=== PATIENT | female | born 1955 | race Hispanic/Latino ===

== ENCOUNTER → 2016-10-16 | Outpatient (CLI) | payer MEDICARE, OTHER ==
[~2016-10-16] MED LIST: CRES20TA PO; DULO30CA PO; ECOT81TA5 PO; INSUNSD SC; INSURSD SC; IRBE300T12 PO; KEPP1TAB2 PO; METF1000 PO; PLAV75TA38 PO; SIMB1SUS OU
== END ==
LOC: M RAD 14:25
PROVIDERS: ATTEND Family Medicine
DX: Z12.39 Encounter for other screening for malignant neoplasm of breast (principal); Z53.9 Procedure and treatment not carried out, unspecified reason

== ENCOUNTER → 2016-11-19 | Outpatient (CLI) | payer MEDICARE, OTHER ==
--- NOTE | 2016-11-19 17:20 | REP ---
CERVICAL SPINE, EIGHT VIEWS: HISTORY: Spondylosis. COMPARISON: 01/25/2015 The cervical spine is visualized from C1 to C5 in the lateral radiographs. There is no acute fracture. The C4-5 and C5-6 intervertebral discs are decreased in height consistent with disc degeneration. Osteophytes are present on C2 through C4. There is narrowing of the C5 neural foramina secondary to uncinate process hypertrophy. There are 2 mm of anterior subluxation of C2 on C3 and C4 on C5 with flexion and 3 mm of anterior subluxation of C3 on C4 with flexion. This is not seen in neutral or extension radiographs. IMPRESSION: Degenerative change as described above. Signed by Galindo Leroy MD 11/20/2016 08:28 A
--- NOTE | 2016-11-19 17:23 | REP ---
LUMBAR SPINE, SEVEN VIEWS: HISTORY: Sacroiliitis. There is no acute fracture. The intervertebral discs are decreased in height consistent with disc degeneration. Osteophytes are present on L3 through L5. There is narrowing of the L3-4 through L5-S1 facet joints. There are 3 mm of grade 1 spondylolisthesis of L4 on L5. This is unchanged with flexion and extension. IMPRESSION: Degenerative change as described above. Signed by Galindo Leroy MD 11/20/2016 08:28 A
== END ==
LOC: M LRY 15:34
PROVIDERS: ATTEND Neurological Surgery
DX: M25.78 Osteophyte, vertebrae (principal); M51.36 Other intervertebral disc degeneration, lumbar region; M51.37 Other intervertebral disc degeneration, lumbosacral region; M50.321 Other cervical disc degeneration at C4-C5 level; M50.322 Other cervical disc degeneration at C5-C6 level
CPT/HCPCS: 72052; 72114; G0463

== ENCOUNTER → 2016-11-20 | Outpatient (REF) | payer MEDICARE ==
[2016-11-20 11:45] LABS: MEAN CORPUSCULAR HEMOGLOBIN 29.2 pg (27.0-33.0); MEAN CORPUSCULAR VOLUME 88.4 fl (80.0-96.0); WHITE BLOOD COUNT 8.1 K/mm3 (4.0-10.0)
[2016-11-20 12:06] LABS: ALBUMIN 3.5 GM/DL (3.2-5.2); ALBUMIN/GLOBULIN RATIO 0.95 (1.00-1.93); ALKALINE PHOSPHATASE 95 U/L (45-117); ALT/SGPT 30 U/L (12-78); ANION GAP 7 MEQ/L (8-16); AST/SGOT 15 U/L (15-37); BILIRUBIN,TOTAL 0.5 MG/DL (0.2-1.0); BLOOD UREA NITROGEN 23 MG/DL (7-18); CALCIUM LEVEL 9.6 MG/DL (8.8-10.2); CARBON DIOXIDE LEVEL 31 MEQ/L (21-32); CHLORIDE LEVEL 107 MEQ/L (98-107); CHOLESTEROL LEVEL 177 MG/DL (<200); CREATININE FOR GFR 0.58 MG/DL (0.55-1.02); GLOMERULAR FILTRATION RATE > 60.0 (>45); GLUCOSE, FASTING 103 MG/DL (80-110); POTASSIUM SERUM 4.4 MEQ/L (3.5-5.1); SODIUM LEVEL 145 MEQ/L (136-145); TOTAL PROTEIN 7.2 GM/DL (6.4-8.2); TRIGLYCERIDES LEVEL 94 MG/DL (<150)
== END ==
LOC: M SFHCLERA 07:46
PROVIDERS: ATTEND Family Medicine
DX: E11.9 Type 2 diabetes mellitus without complications (principal)

== ENCOUNTER → 2016-11-25 | Outpatient (CLI) | payer MEDICARE, OTHER ==
--- NOTE | 2016-11-25 11:16 | REPMRS ---
Patient History The patient states she had a clinical breast exam in 2016. Patient is postmenopausal. Family history of breast cancer in mother at age 57 and breast cancer in maternal aunt at age 60. Took hormonal contraceptives for 20 years. Best films possible , patient not very tolerant of compression Digital Mammo Screening Bilat: November 25, 2016 - Exam #: [id number] Bilateral CC and MLO view(s) were taken. Technologist: Jaylene Espinoza, Technologist Prior study comparison: June 21, 2015, digital bilateral screening mammo, performed at [facility]. FINDINGS: There are scattered fibroglandular densities. There has been no change in the appearance of the mammogram from the prior studies. There is a mild amount of scattered fibroglandular density which is fairly symmetric. There is no interval development of dominant mass, architectural distortion, or clustered microcalcification suggestive of malignancy. ASSESSMENT: BI-RADS/ACR category 1 mammogram. Negative. Recommendation Routine screening mammogram in 1 year (for women over age 40). This mammogram was interpreted with the aid of an FDA-approved computer-aided dectection system. Electronically Signed By: Lior Rodas MD 11/25/16 [id number]
== END ==
LOC: M RAD 08:31
PROVIDERS: ATTEND Family Medicine
DX: Z12.31 Encounter for screening mammogram for malignant neoplasm of breast (principal); Z80.3 Family history of malignant neoplasm of breast

== ENCOUNTER → 2016-12-20 | Outpatient (REF) | payer MEDICARE | LOC: M LAB REF 16:06 | PROVIDERS: ATTEND Neurological Surgery | DX: Z01.818 Encounter for other preprocedural examination (principal); G56.02 Carpal tunnel syndrome, left upper limb ==

== ENCOUNTER → 2017-02-04 | Outpatient (REF) | payer MEDICARE ==
[~2017-02-04] MED LIST changes: +ALPH0.156 OU; +CLEO300C2 PO; +CYCL5TA PO; +CYMB60CA3 PO; +IBUP600T26 PO; +INSURSDRX SC; +METF500T PO; +METO25TA74 PO; +NOVOINJ5 SC; +SIMV20TA2 PO; +TRAZO50TA PO; +TRUS1SOL OU
[2017-02-04 18:02] LABS: INR 1.03
[2017-02-04 18:19] LABS: MEAN CORPUSCULAR HEMOGLOBIN 29.6 pg (27.0-33.0); MEAN CORPUSCULAR HGB CONC 32.5 g/dl (32.0-36.5); MEAN CORPUSCULAR VOLUME 90.9 fl (80.0-96.0); RED CELL DISTRIBUTION WIDTH 12.5 % (11.5-14.5); WHITE BLOOD COUNT 8.5 K/mm3 (4.0-10.0)
[2017-02-04 20:29] LABS: ALBUMIN 3.9 GM/DL (3.2-5.2); ALBUMIN/GLOBULIN RATIO 1.03 (1.00-1.93); ALKALINE PHOSPHATASE 99 U/L (45-117); ALT/SGPT 48 U/L (12-78); ANION GAP 8 MEQ/L (8-16); AST/SGOT 18 U/L (15-37); BILIRUBIN,TOTAL 0.5 MG/DL (0.2-1.0); BLOOD UREA NITROGEN 20 MG/DL (7-18); CALCIUM LEVEL 8.6 MG/DL (8.8-10.2); CARBON DIOXIDE LEVEL 29 MEQ/L (21-32); CHLORIDE LEVEL 103 MEQ/L (98-107); CREATININE FOR GFR 0.77 MG/DL (0.55-1.02); GLOMERULAR FILTRATION RATE > 60.0 (>45); GLUCOSE, FASTING 169 MG/DL (80-110); POTASSIUM SERUM 4.8 MEQ/L (3.5-5.1); SODIUM LEVEL 140 MEQ/L (136-145); TOTAL PROTEIN 7.7 GM/DL (6.4-8.2)
== END ==
LOC: M SFHCLERA 11:35
PROVIDERS: ATTEND Family Medicine
DX: Z01.818 Encounter for other preprocedural examination (principal); G56.02 Carpal tunnel syndrome, left upper limb; E11.9 Type 2 diabetes mellitus without complications; Z79.84 Long term (current) use of oral hypoglycemic drugs; Z79.82 Long term (current) use of aspirin; Z79.4 Long term (current) use of insulin; Z79.899 Other long term (current) drug therapy
CPT/HCPCS: 80053; 85027; 85610; 85730; 93005; G0463

== ENCOUNTER → 2017-02-11 | Outpatient (CLI) | payer MEDICARE ==
[~2017-02-11] MED LIST changes: -CLEO300C2 PO; -IBUP600T26 PO
--- NOTE | 2017-02-11 15:40 | REP ---
Clinical: Preoperative assessment . Comparison: 04/16/2016 . Technique: PA and lateral. Findings: The mediastinum and cardiac silhouette are normal. The lung mccall are clear and without acute consolidation, effusion, or pneumothorax. The skeletal structures are intact and normal. Impression: 1. No acute cardiopulmonary process. Signed by Silverio Stoll MD 02/11/2017 03:31 P
== END ==
LOC: M LAB 14:56
PROVIDERS: ATTEND Neurological Surgery
DX: Z01.818 Encounter for other preprocedural examination (principal); G56.02 Carpal tunnel syndrome, left upper limb

== ENCOUNTER 2017-02-13 07:27 | Day surgery (SDC) | payer MEDICARE ==
[~2017-02-13] VITALS: Ht 147.3 cm; Wt 74.8 kg
[~2017-02-13 07:27] MED LIST changes: -SIMV20TA2 PO
[2017-02-13] MEDS ORDERED: LR 1,000 ML IV ONE (07:45)
[2017-02-13] MEDS ORDERED: SIMV20TA2 PO (08:26)
[2017-02-13] MEDS ORDERED: LIDOCAINE 2% INJ 100 MG/5 ML SDV (FOR ANES.) As Ordered ONE (08:50)
[2017-02-13] MEDS ORDERED: PROPOFOL 200 MG/20 ML VIAL As Ordered ONE (08:50)
[2017-02-13] MEDS ORDERED: MIDAZOLAM INJ 2 MG/2 ML VIAL (J2250) As Ordered ONE (08:51)
[2017-02-13] MEDS ORDERED: fentaNYL 100 MCG/2 ML INJECTION (J3010) As Ordered ONE (08:51)
[2017-02-13] MEDS ORDERED: methylPREDNISolone SUSP 40 MG/ML (DEPO-medrol) VIAL (J1030) As Ordered ONE (09:18)
[2017-02-13] MEDS ORDERED: PHENYLephrine HCL 500 MCG/5 ML (100MCG/ML) SYRINGE (J2370) As Ordered ONE (10:12)
[2017-02-13] MEDS ORDERED: SUCCINYLCHOLINE 100 MG/5 ML SYRINGE (J0330) As Ordered ONE (10:26)
[2017-02-13] MEDS ORDERED: ONDANSETRON 4MG/2ML VIAL (J2405) As Ordered ONE (10:27)
[2017-02-13] MEDS ORDERED: METOCLOPRAMIDE INJ 10MG/2ML VIAL (J2765) As Ordered ONE (10:27)
[2017-02-13] MEDS ORDERED: fentaNYL 100 MCG/2 ML INJECTION (J3010) IV PRN (11:30)
[2017-02-13] MEDS ORDERED: PERCOCET 5MG/325MG TAB PO PRN (11:30)
[2017-02-13] MEDS ORDERED: ONDANSETRON 4MG/2ML VIAL (J2405) IV PRN (11:30)
[2017-02-13] MEDS ORDERED: D5W/0.45% SODIUM CHLORIDE 1,000 ML IV SCH (11:30)
[2017-02-13] MEDS ORDERED: PERCOCET 5MG/325MG TAB As Ordered ONE (13:53)
[2017-02-13 15:55] VITALS: BP 146/68
[2017-02-13 16:25] VITALS: BP 166/72
--- NOTE | 2017-02-13 16:50 | IPNPDOC ---
Subjective Date Seen The patient was seen on 02/13/17. Subjective Chief Complaint/HPI The patient is a 62-year-old female admitted with a reason for visit of Left Carpal Tunnel Syndrome. Events since last encounter Patient underwent carpal tunnel release under general anesthesia. Post surgery was noted to be hypoxic to 85% as soon as she falls asleep in the PACU so anesthesia reccomended admission and observation overnight and hospitalist service was consulted for hypoxia and possible ABDON. Patient denies any SOB , denied any chest pain or cough , denied any abdominal pain nausea or vomiting or diarrhea. Objective Physical Examination General Exam: Positive: Alert, Cooperative, No Acute Distress, Other (obese, short neck ) Eye Exam: Positive: PERRLA, Conjunctiva & lids normal, EOMI, Negative: Sclera icteric ENT Exam: Positive: Atraumatic, Mucous membr. moist/pink, Pharynx Normal Neck Exam: Positive: Supple, Negative: JVD, thyromegaly Chest Exam: Positive: Clear to auscultation, Normal air movement Heart Exam: Positive: Rate Normal, Regular Rhythm, Normal S1, Normal S2, Negative: Murmurs, Rubs Abdomen Exam: Positive: Normal bowel sounds, Soft, Negative: Tenderness, Hepatospenomegaly Extremity Exam: Positive: Normal pulses, Negative: Clubbing, Cyanosis, Edema Skin Exam: Positive: Nl turgor and temperature, Negative: Rash, Breakdown Assessment /Plan Problems (1) Hypoxia Status: Acute Problem Text: Patient will be followed by Dr Weston from 02/13/17 post surgery and anesthesia. patient obese , short stature with short neck body habitus highly suggestive of underlying ABDON never diagnosed before will get continuous nocturnal pulse oximetry and follow ABDON protocol will continue oxygen supplementation. will try to keep pain medication minimal. May need to be referred fo sleep study as outpatient. (2) Diabetes Status: Chronic Problem Text: with neuropathy continue home medications. (3) HTN (hypertension) Status: Chronic Problem Text: continue home medications. (4) History of TIA (transient ischemic attack) Status: Resolved Problem Text: continue asa and plavix. (5) Seizure Status: Chronic Problem Text: continue keppra (6) Hyperlipidemia Status: Chronic Problem Text: continue statin. (7) Peptic ulcer disease Status: Chronic (8) Glaucoma Status: Chronic Plan/VTE VTE Prophylaxis Ordered?: Yes VS, I&O, 24H, Fishbone Vital Signs/I&O Vital Signs Date Time Temp Pulse Resp B/P (MAP) Pulse Ox O2 Delivery O2 Flow Rate FiO2 02/13/17 15:25 88 16 136/62 (86) 93 Room Air 02/13/17 12:50 98.0 02/13/17 11:45 2 Laboratory Data 24H LABS Laboratory Tests 2 02/13/17 08:16: Bedside Glucose (Misc Panel) 112 02/13/17 11:01: Bedside Glucose (Misc Panel) 72L 02/13/17 11:54: Bedside Glucose (Misc Panel) 138H 02/13/17 14:08: Bedside Glucose (Misc Panel) 193H LUCÍA INGRAM MD February 13, 2017 16:47
[2017-02-13] MEDS ORDERED: GLUCOSE 4 GM CHEW TABLET PO PRN (17:00)
[2017-02-13] MEDS ORDERED: DEXTROSE 50% 50 ML SYRINGE IV PRN (17:00)
[2017-02-13] MEDS ORDERED: GLUCAGON FOR INJ 1 MG VIAL (J1610) SC PRN (17:00)
[2017-02-13 17:25] VITALS: BP 126/59
--- NOTE | 2017-02-13 18:02 | RO ---
DATE OF PROCEDURE: 02/13/2017 PREOPERATIVE DIAGNOSIS: Left carpel tunnel syndrome. POSTOPERATIVE DIAGNOSIS: Left carpel tunnel syndrome. PROCEDURES: 1. Release of left carpal tunnel. 2. External neurolysis of medial nerve of the left carpel tunnel. SURGEON: Lenin Griggs MD DRIP MOLDER: ANESTHESIA: General. FINDINGS: Please see my office notes for detailed preoperative evaluation and discussion. This patient had clinical and electrodiagnostic evidence of left carpal tunnel syndrome. The patient was seen in the preoperative area with her daughter. The patient and her daughter were aware of all options, scope, expected outcome, sequelae, and risk of the proposed salvage surgery on the left carpel tunnel. She and her daughter understand that not all her symptoms could be readily explained on her carpel tunnel syndrome. Her electrodiagnostic findings show complicated findings with radiculopathy as well as multiple peripheral nerve entrapments. The patient once again stated she is willing to run any or all risk for any possible benefit and she understands the risk of surgery includes infection, bleeding, reflex sympathetic dystrophy (RSD), persistence or worsening or symptoms and/or any deficits, failure of surgery, need for multiple surgeries and/or catastrophic sequela. At her request she was taken to the operating room after all matters pertaining to surgery, anesthesia and followup care had been discussed again. Discussions were held in the presence of her daughter as well as anesthesiologist. DESCRIPTION OF PROCEDURE: Once in the operating room, general anesthesia was given by the anesthesia service after the patient decided to have general anesthesia rather than the Anthony block. The area of surgery was prepped and draped in the usual sterile fashion. The left upper extremity was exsanguinated using Esmarch dressing and a tourniquet applied 20 mmHg. A skin incision was given along one of the palmar creases distal to the wrist crease. Alveolar layer was reached and incised. Cut edges of the blood vessels were coagulated with the bipolar cautery. Tendons of palmaris longus were . Thenar and hypothenar muscles were stripped off the flexor, the retinaculum was then incised in its entirety. There was nodular hypertrophy of the flexor retinaculum, which was compressing the median nerve. There were several significant perineural adhesions, which were lysed. At this time complete decompression was taken place and the nerve was irrigated with 40 mg Depo-Medrol and wound closed in two layers. The patient tolerated the procedure. I could not locate her daughter or other family members for further discussion. The patient and her daughter had written and verbal followup instructions.
[2017-02-13 18:30] VITALS: BP 154/73
[2017-02-13] MEDS: HumaLOG INSULIN (NovoLOG) PER UNIT SC SCH (19:09)
[2017-02-13 20:00] VITALS: BP 137/63
[2017-02-13] MEDS: DORZOLAMIDE 2% OPHTH SOLN 10 ML BTL OU SCH (20:06)
[2017-02-13] MEDS: levETIRAcetam 250MG TABLET (KEPPRA) PO SCH (20:06)
[2017-02-13] MEDS: BRIMONIDINE 0.15% OPHTH SOLN 5 ML OU SCH (20:06)
[2017-02-13] MEDS ORDERED: NORCO, ANEXSIA 5/325MG TABLET (HYDROcodone/ACETAMINOPHEN) PO PRN ×2 (20:30)
[2017-02-13] MEDS ORDERED: HumaLOG INSULIN (NovoLOG) PER UNIT SC SCH (21:00)
[2017-02-13] MEDS ORDERED: HumuLIN N INSULIN (NovoLIN N) PER UNIT SC ONE (22:45)
[2017-02-14] VITALS: BP 168/76
[2017-02-14 04:00] VITALS: BP 136/70
[2017-02-14] MEDS ORDERED: HumuLIN N INSULIN (NovoLIN N) PER UNIT SC SCH (07:00)
[2017-02-14 07:21] LABS: ANION GAP 6 MEQ/L (8-16); BLOOD UREA NITROGEN 13 MG/DL (7-18); CALCIUM LEVEL 8.7 MG/DL (8.8-10.2); CARBON DIOXIDE LEVEL 33 MEQ/L (21-32); CHLORIDE LEVEL 102 MEQ/L (98-107); CREATININE FOR GFR 0.57 MG/DL (0.55-1.02); GLOMERULAR FILTRATION RATE > 60.0 (>45); GLUCOSE, FASTING 181 MG/DL (80-110); SODIUM LEVEL 141 MEQ/L (136-145)
[2017-02-14] MEDS: HumaLOG INSULIN (NovoLOG) PER UNIT SC SCH ×2 (07:26→12:38)
[2017-02-14 08:00] VITALS: BP 138/66
[2017-02-14] MEDS ORDERED: metFORMIN (GLUCOPHAGE) 500 MG TAB PO SCH (08:00)
[2017-02-14] MEDS: levETIRAcetam 250MG TABLET (KEPPRA) PO SCH (08:53)
[2017-02-14 08:54] VITALS: BP 138/66
[2017-02-14] MEDS: BRIMONIDINE 0.15% OPHTH SOLN 5 ML OU SCH (08:55)
[2017-02-14] MEDS: DORZOLAMIDE 2% OPHTH SOLN 10 ML BTL OU SCH (08:55)
[2017-02-14] MEDS ORDERED: ASPIRIN 81 MG ENTERIC TAB PO SCH (09:00)
[2017-02-14] MEDS ORDERED: SIMVASTATIN 20 MG TAB PO SCH ×2 (09:00→21:00)
[2017-02-14] MEDS ORDERED: IRBESARTAN 150 MG TAB PO SCH (09:00)
[2017-02-14] MEDS ORDERED: DULoxetine 30 MG CAP (CYMBALTA) PO SCH (09:00)
[2017-02-14] MEDS ORDERED: METOPROLOL SUCC *XL* 25MG TAB (TopROL *XL*) PO SCH (09:00)
[2017-02-14] MEDS ORDERED: CLOPIDOGREL 75 MG TAB PO SCH (09:00)
[2017-02-14 12:00] VITALS: BP 128/77
--- NOTE | 2017-02-14 16:17 | IPNPDOC ---
Text Note Date of Service The patient was seen on 02/14/17. NOTE Subjective: Denies any complaints. Feels well. Wants to go home. Objective: Vitals: (see below) General: No acute distress, Sitting comfortably in chair. HEENT: Moist mucous membranes. Neck: No JVD Cardiac: RRR, No murmurs Pulm: Clear to auscultation b/l. No wheezing, rhonchi Abd: NT/ND + BS. Obese Ext: No edema or cyanosis. Labs (see below) Assessment/Plan 1. POD #1 s/p Carpel tunnel release. Management per Dr. Griggs 2. Hypoxia post surg - likely related to ABDON. Nocturnal pulse ox with desaturation to 70s, and variable decelerations. Discussed with Dr. Ansari, who recommends outpt sleep study. Pt states she will have her PCP arrange this. 3.DM - cont home insulin 4. HTN -cont home meds 5. H/o TIA - on antiplatelet agents 6. H/o seizure - cont keppra 7. HLD - cont statin 8. PUD - stable - f/u outpt 9. H/o glaucoma DVT prophy - OOB. VS,Fishbone, I+O VS, Fishbone, I+O Laboratory Tests 02/14/17 06:46 Calcium Level 8.7 L Vital Signs Date Time Temp Pulse Resp B/P (MAP) Pulse Ox O2 Delivery O2 Flow Rate FiO2 02/14/17 12:00 97.9 82 20 128/77 (94) 98 Room Air 02/13/17 11:45 2 I&O- Last 24 Hours up to 6 AM 02/14/17 06:00 Intake Total 2985 ml Output Total 1300 ml Balance 1685 ml GIANA REYNOLDS MD February 14, 2017 16:17
--- NOTE | 2017-02-15 15:13 | PULFX ---
DATE OF PROCEDURE: 02/13/2017 Nocturnal recording oximetry was performed on room air. Baseline saturation was 90%, lowest oxygen saturation recorded 70%. Pattern was one of variable desaturations. IMPRESSION: Abnormal nocturnal recording oximetry with variable desaturations to 70%. Consider obstructive sleep apnea syndrome.
== END 2017-02-14 14:30 | disposition home or self-care (01) ==
LOC: M SDC 07:27 → M PED 15:51 → M SDC 02-14 14:30
PROVIDERS: ATTEND Neurological Surgery
DX: G56.02 Carpal tunnel syndrome, left upper limb (principal); R09.02 Hypoxemia; R94.2 Abnormal results of pulmonary function studies; E11.40 Type 2 diabetes mellitus with diabetic neuropathy, unspecified; I10 Essential (primary) hypertension; E11.319 Type 2 diabetes mellitus with unspecified diabetic retinopathy without macular edema; Z86.73 Personal history of transient ischemic attack (TIA), and cerebral infarction without residual deficits; G40.909 Epilepsy, unspecified, not intractable, without status epilepticus; E78.5 Hyperlipidemia, unspecified; K27.9 Peptic ulcer, site unspecified, unspecified as acute or chronic, without hemorrhage or perforation; H40.9 Unspecified glaucoma; M54.9 Dorsalgia, unspecified; M19.90 Unspecified osteoarthritis, unspecified site; R10.811 Right upper quadrant abdominal tenderness; Z79.899 Other long term (current) drug therapy; Z79.84 Long term (current) use of oral hypoglycemic drugs; Z79.4 Long term (current) use of insulin; Z79.02 Long term (current) use of antithrombotics/antiplatelets; Z79.82 Long term (current) use of aspirin; Z87.891 Personal history of nicotine dependence
CPT/HCPCS: 36415; 64721; 80048; 94762; J0330; J0690; J1030; J2250; J2370; J2405; J2765; J3010

== ENCOUNTER 2017-02-27 14:26 | Emergency (ER) | payer MEDICARE ==
[~2017-02-27] VITALS: Ht 147.3 cm; Wt 73.9 kg
[~2017-02-27 14:26] MED LIST changes: -CLEO300C2 PO; -IBUP600T26 PO
[2017-02-27] MEDS ORDERED: CLINDAMYCIN 150 MG CAP PO ONE (15:00)
--- NOTE | 2017-02-27 15:46 | REP ---
CT CERVICAL SPINE WITHOUT CONTRAST: HISTORY: Neck pain. There is no acute fracture or subluxation. Disc bulges are present at the C3-4, C4-5 and C6-7 levels. A disc bulge with associated osteophyte formation is present at the C5-6 level. There is minimal narrowing of the spinal canal. Uncinate process hypertrophy is present at the C5-6 level. This produces minimal narrowing of the C5 neural foramina. The remaining neural foramina are patent. The C4-5 and C5-6 intervertebral discs are decreased in height. Vacuum phenomenon is present. These findings are consistent with disc degeneration. IMPRESSION: 1. There is no acute fracture or subluxation. 2. There is cervical spondylosis at the C3-4 through C6-7 levels. Signed by Galindo Leroy MD 02/27/2017 03:56 P
[2017-02-27] MEDS ORDERED: CLEO300C2 PO (15:58)
[2017-02-27] MEDS ORDERED: IBUP600T26 PO (15:58)
[2017-02-27 16:30] VITALS: BP 145/81
== END 2017-02-27 16:31 | disposition home or self-care (01) ==
LOC: M ED 15:14
DX: M54.2 Cervicalgia (principal); L03.114 Cellulitis of left upper limb; Z98.890 Other specified postprocedural states; E11.9 Type 2 diabetes mellitus without complications; Z87.891 Personal history of nicotine dependence; Z79.899 Other long term (current) drug therapy; Z79.84 Long term (current) use of oral hypoglycemic drugs; Z79.02 Long term (current) use of antithrombotics/antiplatelets; M54.6 Pain in thoracic spine; M50.821 Other cervical disc disorders at C4-C5 level; M50.822 Other cervical disc disorders at C5-C6 level; M50.823 Other cervical disc disorders at C6-C7 level; M25.78 Osteophyte, vertebrae

== ENCOUNTER → 2017-02-27 | Outpatient (CLI) | payer MEDICARE ==
[~2017-02-27] MED LIST changes: +CLEO300C2 PO; +IBUP600T26 PO; +SIMV20TA2 PO
--- NOTE | 2017-02-27 13:51 | REP ---
THORACIC SPINE, FOUR VIEWS: HISTORY: Mid back pain. There is no acute fracture or subluxation. The intervertebral discs are normal in height. Small anterior osteophytes are present in the lower thoracic spine. IMPRESSION: Degenerative change, as described above. Signed by Galindo Leroy MD 02/27/2017 02:01 P
--- NOTE | 2017-02-27 13:58 | REP ---
REASON: Pain after trauma. COMPARISON: 11/19/2016 The dens cannot be effectively evaluated secondary to the superimposition of osseous structures and/or dentition on all views. Chronic changes are seen throughout the cervical spine, status quo. A swimmer's view was not obtained. The swimmer's view was included in the thoracic spine series and all interested parties should read that report, which includes the swimmer's view. Posterior disc space narrowing is seen at every level, status quo. The intervertebral foramina are unchanged. There is evidence of C5 foraminal narrowing bilaterally. Note is again made of unchanged 2 mm anterolisthesis of C2 on C3 and C4 on C5 with flexion, and 3 mm of anterolisthesis of C3 on C4 with flexion. This abates in the neutral position. IMPRESSION: No change from the prior exam with findings as described above. Since the patient has sustained a trauma, CT of the cervical spine is recommended to rule out an acute fracture which cannot be commented or identified by plain radiography. Signed by Jose Ceja DO 02/27/2017 02:26 P
== END ==
LOC: M LRY 12:52
PROVIDERS: ATTEND Nurse Practitioner Family
DX: M54.6 Pain in thoracic spine (principal); M50.21 Other cervical disc displacement, high cervical region; M50.320 Other cervical disc degeneration, mid-cervical region, unspecified level; M25.78 Osteophyte, vertebrae

== ENCOUNTER → 2017-03-07 | Outpatient (REF) | payer MEDICARE ==
[~2017-03-07] MED LIST changes: +CLEO300C2 PO; +IBUP600T26 PO
== END ==
LOC: M SFHCLERA 10:48
PROVIDERS: ATTEND Family Medicine
DX: E11.42 Type 2 diabetes mellitus with diabetic polyneuropathy (principal); Z53.8 Procedure and treatment not carried out for other reasons

== ENCOUNTER → 2017-04-18 | Outpatient (REF) | payer MEDICARE ==
[~2017-04-18] MED LIST changes: -CYCL5TA PO; +CYCL5TAB PO; +IBUP-1022 PO; -IBUP600T26 PO; -METF1000 PO; +METF10004 PO; -METF500T PO; +METF500T13 PO; +METO1TAB32 PO; -METO25TA74 PO; +PLAV1TAB2 PO; -PLAV75TA38 PO
== END ==
LOC: M SFHCLERA 11:06
PROVIDERS: ATTEND Family Medicine
DX: E11.42 Type 2 diabetes mellitus with diabetic polyneuropathy (principal)
CPT/HCPCS: 83036; G0463

== ENCOUNTER → 2017-06-05 | Outpatient (REF) | payer MEDICARE | LOC: M SFHCLERA 12:04 | PROVIDERS: ATTEND Family Medicine | DX: L02.91 Cutaneous abscess, unspecified (principal) | CPT/HCPCS: 87070; 87077; 87186; G0463 ==

== ENCOUNTER → 2017-06-23 | Outpatient (CLI) | payer MEDICARE ==
--- NOTE | 2017-06-26 10:52 | REP ---
CT Head without contrast HISTORY: Infarction COMPARISON: 04/03/2015 Areas of decreased attenuation are present in the periventricular and subcortical white matter. This represents small-vessel ischemic disease. There is no intraparenchymal hemorrhage, acute infarct, mass or midline shift. The ventricular system and cortical sulci are dilated consistent with minimal volume loss. There is no extra cerebral collection. There is no fracture. The visualized sinuses are clear. IMPRESSION: 1. Small vessel ischemic disease. 2. Minimal volume loss. Signed by Galindo Leroy MD 06/26/2017 10:43 A
== END ==
LOC: M RAD 18:03
PROVIDERS: ATTEND Psychiatry & Neurology Neurology
DX: I67.9 Cerebrovascular disease, unspecified (principal); I63.09 Cerebral infarction due to thrombosis of other precerebral artery; R29.6 Repeated falls

== ENCOUNTER → 2017-09-08 | Outpatient (REF) | payer MEDICARE ==
[2017-09-08 20:19] LABS: MEAN CORPUSCULAR HEMOGLOBIN 28.1 pg (27.0-33.0); MEAN CORPUSCULAR HGB CONC 32.8 g/dl (32.0-36.5); MEAN CORPUSCULAR VOLUME 85.8 fl (80.0-96.0); PLATELET COUNT, AUTOMATED 294 10^3/uL (150-450); RED CELL DISTRIBUTION WIDTH 12.1 % (11.5-14.5); WHITE BLOOD COUNT 8.6 10^3/uL (4.0-10.0)
[2017-09-08 20:38] LABS: ALBUMIN/GLOBULIN RATIO 0.93 (1.00-1.93); ALKALINE PHOSPHATASE 92 U/L (45-117); ALT/SGPT 45 U/L (12-78); ANION GAP 8 MEQ/L (8-16); AST/SGOT 16 U/L (7-37); BILIRUBIN,TOTAL 0.5 MG/DL (0.2-1.0); BLOOD UREA NITROGEN 15 MG/DL (7-18); CALCIUM LEVEL 9.3 MG/DL (8.8-10.2); CARBON DIOXIDE LEVEL 29 MEQ/L (21-32); CHLORIDE LEVEL 98 MEQ/L (98-107); CHOLESTEROL LEVEL 195 MG/DL (<200); CREATININE FOR GFR 0.68 MG/DL (0.55-1.02); GLOMERULAR FILTRATION RATE > 60.0 (>45); GLUCOSE, FASTING 266 MG/DL (80-110); POTASSIUM SERUM 4.2 MEQ/L (3.5-5.1); SODIUM LEVEL 135 MEQ/L (136-145); TOTAL PROTEIN 8.3 GM/DL (6.4-8.2); TRIGLYCERIDES LEVEL 232 MG/DL (<150)
== END ==
LOC: M SFHCLERA 16:15
PROVIDERS: ATTEND Family Medicine
DX: E11.42 Type 2 diabetes mellitus with diabetic polyneuropathy (principal)

== ENCOUNTER → 2017-11-13 | Outpatient (CLI) | payer MEDICARE ==
[2017-11-13 17:19] LABS: ANION GAP 10 MEQ/L (8-16); BLOOD UREA NITROGEN 24 MG/DL (7-18); CALCIUM LEVEL 9.6 MG/DL (8.8-10.2); CARBON DIOXIDE LEVEL 29 MEQ/L (21-32); CHLORIDE LEVEL 102 MEQ/L (98-107); CREATININE FOR GFR 0.73 MG/DL (0.55-1.30); GLOMERULAR FILTRATION RATE > 60.0 (>45); GLUCOSE, FASTING 170 MG/DL (70-100); SODIUM LEVEL 141 MEQ/L (136-145)
== END ==
LOC: M LRY 13:48
DX: E11.65 Type 2 diabetes mellitus with hyperglycemia (principal)
CPT/HCPCS: 80048

== ENCOUNTER → 2017-12-26 | Outpatient (CLI) | payer MEDICARE | LOC: M RAD 16:29 | DX: R29.6 Repeated falls (principal); R55 Syncope and collapse | CPT/HCPCS: 70450 ==

== ENCOUNTER 2018-01-02 11:58 | Day surgery (SDC) | payer MEDICARE ==
[2018-01-02] MEDS: LR 1,000 ML IV (13:20)
[2018-01-02 13:33] LABS: BEDSIDE GLUCOSE 186 MG/DL (80-115)
[2018-01-02] MEDS ORDERED: PROPOFOL 200 MG/20 ML VIAL As Ordered ×2 (14:39→15:37)
[2018-01-02] MEDS ORDERED: LIDOCAINE 2% INJ 100 MG/5 ML SDV (FOR ANES.) As Ordered (14:39)
[2018-01-02] MEDS ORDERED: fentaNYL 100 MCG/2 ML INJECTION (J3010) As Ordered (14:39)
[2018-01-02] MEDS ORDERED: MIDAZOLAM INJ 2 MG/2 ML VIAL (J2250) As Ordered (14:40)
[2018-01-02] MEDS: ceFAZolin 1GM INJ (J0690 PER 500MG) As Ordered (14:54)
[2018-01-02] MEDS: CETACAINE SPRAY 5GM As Ordered (15:49)
[2018-01-02] MEDS: LIDOCAINE VISCOUS 2% SOLN 15ML UDC As Ordered (15:49)
[2018-01-02] MEDS: CEFAZOLIN SOD 1 GM in APPROPRIATE DILUENT 1 EA IV (15:50)
[2018-01-02] MEDS: LIDOCAINE 1% SDV INJ 30 ML VIAL As Ordered (16:08)
[2018-01-02] MEDS ORDERED: ACETAMINOPHEN TAB 650MG DOSE (2X325MG) PO (16:45)
== END 2018-01-02 17:25 | disposition home or self-care (01) ==
LOC: M SDC 17:25
DX: I63.9 Cerebral infarction, unspecified (principal); R55 Syncope and collapse; R00.2 Palpitations; I10 Essential (primary) hypertension; E78.2 Mixed hyperlipidemia; E66.09 Other obesity due to excess calories; Z87.891 Personal history of nicotine dependence; Z79.4 Long term (current) use of insulin; E11.9 Type 2 diabetes mellitus without complications; Z86.73 Personal history of transient ischemic attack (TIA), and cerebral infarction without residual deficits
CPT/HCPCS: 33282

== ENCOUNTER → 2018-05-28 | Outpatient (REF) | payer MEDICARE ==
[2018-05-28 16:31] LABS: ALBUMIN 3.8 GM/DL (3.2-5.2); ALBUMIN/GLOBULIN RATIO 0.86 (1.00-1.93); ALKALINE PHOSPHATASE 80 U/L (45-117); ALT/SGPT 31 U/L (12-78); ANION GAP 7 MEQ/L (8-16); AST/SGOT 8 U/L (7-37); BILIRUBIN,TOTAL 0.8 MG/DL (0.2-1.0); BLOOD UREA NITROGEN 20 MG/DL (7-18); CALCIUM LEVEL 9.4 MG/DL (8.8-10.2); CARBON DIOXIDE LEVEL 29 MEQ/L (21-32); CHLORIDE LEVEL 102 MEQ/L (98-107); CREATININE FOR GFR 0.66 MG/DL (0.55-1.30); GLOMERULAR FILTRATION RATE > 60.0 (>45); GLUCOSE, FASTING 185 MG/DL (70-100); SODIUM LEVEL 138 MEQ/L (136-145); TOTAL PROTEIN 8.2 GM/DL (6.4-8.2)
[2018-05-28 16:33] LABS: POTASSIUM SERUM 5.5 MEQ/L (3.5-5.1)
== END ==
LOC: M SFHCLERA 11:24
DX: Z01.818 Encounter for other preprocedural examination (principal); H43.12 Vitreous hemorrhage, left eye
CPT/HCPCS: 80053

== ENCOUNTER → 2018-09-08 | Outpatient (REF) | payer MEDICARE | LOC: M SFHCLERA 16:11 | DX: I10 Essential (primary) hypertension (principal); Z53.8 Procedure and treatment not carried out for other reasons ==

== ENCOUNTER → 2018-10-06 | Outpatient (CLI) | payer MEDICARE ==
[~2018-10-06] MED LIST changes: +JARD1TAB PO; +PRAV20TA2 PO; +TOUJ1.2I SC
--- NOTE | 2018-10-06 12:52 | REP ---
Chest two views HISTORY: Fall Comparison: 02/11/2017 The lungs are clear. The heart is normal in size. The pulmonary vasculature is normal in appearance. The bony structure is intact. Postoperative change is present in the left shoulder. IMPRESSION: No acute disease. Electronically Signed by Galindo Leroy MD 10/06/2018 12:44 P
== END ==
LOC: M LRY 12:03
PROVIDERS: ATTEND Nurse Practitioner Family
DX: R06.02 Shortness of breath (principal); W22.09XA Striking against other stationary object, initial encounter; Y92.89 Other specified places as the place of occurrence of the external cause
CPT/HCPCS: 71046; 82948; 93005; G0463

== ENCOUNTER → 2019-01-07 | Outpatient (REF) | payer MEDICARE ==
[~2019-01-07] MED LIST changes: -CRES20TA PO; +CRES20TA2 PO; -DULO30CA PO; +DULO30CA9 PO
[2019-01-08 12:27] LABS: ALBUMIN 4.3 GM/DL (3.2-5.2); ALT/SGPT 36 U/L (12-78); BILIRUBIN,TOTAL 0.7 MG/DL (0.2-1.0); BLOOD UREA NITROGEN 14 MG/DL (7-18); CALCIUM LEVEL 9.6 MG/DL (8.8-10.2); CARBON DIOXIDE LEVEL 32 MEQ/L (21-32); CHLORIDE LEVEL 101 MEQ/L (98-107); CHOLESTEROL LEVEL 249 MG/DL (<200); CHOLESTEROL RISK RATIO 3.952 (<5); CREATININE FOR GFR 0.65 MG/DL (0.55-1.30); GLOMERULAR FILTRATION RATE > 60.0 (>45); GLUCOSE, FASTING 101 MG/DL (70-100); HDL CHOLESTEROL 63 MG/DL (>40); LDL CHOLESTEROL 128 MG/DL (<100); NON-HDL-C 186 MG/DL; POTASSIUM SERUM 4.7 MEQ/L (3.5-5.1); SODIUM LEVEL 140 MEQ/L (136-145); TOTAL PROTEIN 8.4 GM/DL (6.4-8.2); TRIGLYCERIDES LEVEL 288 MG/DL (<150)
[2019-01-08 12:56] LABS: CREATININE, URINE 40.6 MG/DL; MALB URINE SIEMENS 10.9 MG/L; MAU/CREAT RATIO 26.8 MCG/MG (0.0-30.0)
[2019-01-08 12:58] LABS: HEMOGLOBIN A1c 7.9 %
== END ==
LOC: M SFHCLERA 15:43
PROVIDERS: ATTEND Family Medicine
DX: E78.5 Hyperlipidemia, unspecified (principal); E11.3519 Type 2 diabetes mellitus with proliferative diabetic retinopathy with macular edema, unspecified eye

== ENCOUNTER 2019-09-10 23:01 | Emergency (ER) | payer MEDICARE ==
[~2019-09-10] VITALS: Ht 147.3 cm; Wt 66.8 kg
[~2019-09-10 23:01] MED LIST changes: -SIMV20TA2 PO; +SIMV20TA22 PO; +TRAZ1TAB10 PO; -TRAZO50TA PO
[2019-09-10] MEDS ORDERED: METO1TAB32 PO (23:24)
[2019-09-10] MEDS ORDERED: TOUJ1.2I SQ (23:24)
[2019-09-10] MEDS ORDERED: HUMA100I14 SQ (23:24)
[2019-09-10] MEDS ORDERED: METOCLOPRAMIDE INJ 10MG/2ML VIAL (J2765) IV ONE (23:30)
[2019-09-10] MEDS ORDERED: NS 500 ML IV ONE (23:30)
[2019-09-10] MEDS ORDERED: METOCLOPRAMIDE INJ 10MG/2ML VIAL (J2765) As Ordered ONE (23:39)
[2019-09-10] MEDS ORDERED: MORPHINE 4 MG/ML 1ML VIAL/SYRINGE (J2270) IV ONE (23:45)
[2019-09-11 00:05] LABS: ALBUMIN 3.9 GM/DL (3.2-5.2); ALT/SGPT 40 U/L (12-78); BILIRUBIN,DIRECT 0.2 MG/DL (0.0-0.2); BILIRUBIN,TOTAL 1.2 MG/DL (0.2-1.0); BLOOD UREA NITROGEN 20 MG/DL (7-18); CALCIUM LEVEL 9.8 MG/DL (8.8-10.2); CARBON DIOXIDE LEVEL 25 MEQ/L (21-32); CHLORIDE LEVEL 95 MEQ/L (98-107); CREATININE FOR GFR 0.93 MG/DL (0.55-1.30); GLOMERULAR FILTRATION RATE > 60.0 (>45); GLUCOSE, FASTING 224 MG/DL (70-100); LIPASE 50 U/L (73-393); POTASSIUM SERUM 4.2 MEQ/L (3.5-5.1); SODIUM LEVEL 133 MEQ/L (136-145); TOTAL PROTEIN 8.1 GM/DL (6.4-8.2)
[2019-09-11 00:07] LABS: BASO # 0.1 10^3/uL (0.0-0.2); BASO % 0.4 % (0.0-1.0); HEMATOCRIT 43.6 % (36.0-47.0); HEMOGLOBIN 14.7 g/dl (12.0-15.5); LYMPH # 1.6 10^3/uL (1.5-5.0); LYMPH % 11.9 % (24.0-44.0); MEAN CORPUSCULAR HEMOGLOBIN 28.7 pg (27.0-33.0); MEAN CORPUSCULAR HGB CONC 33.7 g/dl (32.0-36.5); MEAN CORPUSCULAR VOLUME 85.2 fl (80.0-96.0); MONO # 0.3 10^3/uL (0.0-0.8); MONO % 2.1 % (0.0-5.0); NEUTROPHILS % 84.6 % (36.0-66.0); PLATELET COUNT, AUTOMATED 322 10^3/uL (150-450); RED BLOOD COUNT 5.12 10^6/uL (4.00-5.40)
[2019-09-11] MEDS ORDERED: NS 500 ML IV ONE ×2 (00:15→00:30)
[2019-09-11] MEDS ORDERED: ISOVUE-370 76% 100ML VIAL (Q9967) As Ordered ONE (00:16)
--- NOTE | 2019-09-11 01:01 | REPVR ---
PROCEDURE INFORMATION: Exam: CT Abdomen And Pelvis With Contrast Exam date and time: 09/11/2019 12:12 AM Age: 64 years old Clinical history: Abdominal pain; Localized; Left; Additional info: L pain TECHNIQUE: Imaging protocol: Computed tomography of the abdomen and pelvis with intravenous contrast. Radiation optimization: All CT scans at this facility use at least one of these dose optimization techniques: automated exposure control; mA and/or kV adjustment per patient size (includes targeted exams where dose is matched to clinical indication); or iterative reconstruction. Contrast material: ISO; Contrast volume: 100 ml; Contrast route: AC; COMPARISON: No relevant prior studies available. FINDINGS: Mediastinum: Minimal hiatal hernia. Liver: The liver attenuation is 83 Hounsfield units and the spleen is 140 Hounsfield units. Gallbladder and bile ducts: Normal. No calcified stones. No ductal dilation. Pancreas: Normal. No ductal dilation. Spleen: Normal. No splenomegaly. Adrenals: Normal. No mass. Kidneys and ureters: Normal. No hydronephrosis. Stomach and bowel: Much of the colon is collapsed or contracted with question of minimal diffuse colonic wall thickening. Appendix: A normal appendix is seen. Intraperitoneal space: Unremarkable. No free air. No significant fluid collection. Vasculature: Incidental note of a retroaortic left renal vein. Lymph nodes: Unremarkable. No enlarged lymph nodes. Bladder: Unremarkable as visualized. Reproductive: Status post hysterectomy. Bones/joints: Lower lumbar facet arthropathy with slight anterolisthesis of L4 relative to L5. Soft tissues: Skin thickening consistent with injection sites in the periumbilical region. IMPRESSION: 1. Question of minimal nonspecific pancolitis. 2. Status post hysterectomy. 3. Minimal hiatal hernia. 4. Fatty infiltration of the liver. Electronically signed by: Jignesh Arceo On 09/11/2019 01:01:24 AM
[2019-09-11] MEDS ORDERED: REGL10TA6 PO (01:53)
[2019-09-11 02:00] VITALS: BP 179/87
== END 2019-09-11 02:25 | disposition home or self-care (01) ==
LOC: M ED 23:01
DX: K52.9 Noninfective gastroenteritis and colitis, unspecified (principal); E11.9 Type 2 diabetes mellitus without complications; I10 Essential (primary) hypertension; G40.909 Epilepsy, unspecified, not intractable, without status epilepticus; F33.9 Major depressive disorder, recurrent, unspecified; F41.9 Anxiety disorder, unspecified; Z79.899 Other long term (current) drug therapy; Z79.82 Long term (current) use of aspirin; Z79.4 Long term (current) use of insulin
CPT/HCPCS: 74177; 80048; 80076; 83605; 83690; 85025; 87040; 96361; 96374; 96375; 99284; J2270; J2765; Q9967

== ENCOUNTER → 2019-10-26 | Outpatient (REF) | payer MEDICARE ==
[~2019-10-26] MED LIST changes: +HUMA100I14 SQ; +REGL10TA6 PO; +TOUJ1.2I SQ
[2019-10-26 20:42] LABS: BLOOD UREA NITROGEN 17 MG/DL (7-18); CALCIUM LEVEL 9.5 MG/DL (8.8-10.2); CARBON DIOXIDE LEVEL 29 MEQ/L (21-32); CHLORIDE LEVEL 98 MEQ/L (98-107); CHOLESTEROL LEVEL 133 MG/DL (<200); CHOLESTEROL RISK RATIO 2.462 (<5); CREATININE FOR GFR 0.68 MG/DL (0.55-1.30); GLOMERULAR FILTRATION RATE > 60.0 (>45); GLUCOSE, FASTING 184 MG/DL (70-100); HDL CHOLESTEROL 54 MG/DL (>40); LDL CHOLESTEROL 54 MG/DL (<100); NON-HDL-C 79 MG/DL; POTASSIUM SERUM 4.6 MEQ/L (3.5-5.1); SODIUM LEVEL 135 MEQ/L (136-145); TRIGLYCERIDES LEVEL 125 MG/DL (<150)
[2019-10-26 20:52] LABS: HEMOGLOBIN A1c 7.9 %
== END ==
LOC: M SFHCLERA 15:56
PROVIDERS: ATTEND Family Medicine
DX: E78.5 Hyperlipidemia, unspecified (principal); I10 Essential (primary) hypertension; E11.42 Type 2 diabetes mellitus with diabetic polyneuropathy; Z23 Encounter for immunization
CPT/HCPCS: 80048; 80061; 83036; 90472; 90682; 90715; G0008; G0463

== ENCOUNTER 2019-11-18 15:57 | Emergency (ER) | payer MEDICARE ==
[~2019-11-18] VITALS: Ht 147.3 cm; Wt 66.8 kg
[2019-11-18] MEDS ORDERED: DEXTROSE 50% 50 ML SYRINGE As Ordered ONE (16:21)
[2019-11-18] MEDS ORDERED: DEXTROSE 50% 50 ML SYRINGE IV STA ×3 (16:35→19:17)
--- NOTE | 2019-11-18 16:37 | REP ---
Clinical: Chest pain . Comparison: 10/06/2018 . Findings: The mediastinum and cardiac silhouette are stable and within normal limits for portable technique. Loop recorder overlies the left cardiac silhouette. The lung mccall are clear without acute consolidation, effusion, or pneumothorax. Skeletal structures are intact. Impression: No acute cardiopulmonary process appreciated. Electronically Signed by Silverio Stoll MD 11/18/2019 04:29 P
[2019-11-18 16:39] LABS: BASO # 0.1 10^3/uL (0.0-0.2); BASO % 0.5 % (0.0-1.0); EOS # 0.1 10^3/uL (0.0-0.5); EOS % 0.7 % (0.0-3.0); HEMATOCRIT 44.6 % (36.0-47.0); HEMOGLOBIN 14.8 g/dl (12.0-15.5); LYMPH # 3.5 10^3/uL (1.5-5.0); MEAN CORPUSCULAR HEMOGLOBIN 28.6 pg (27.0-33.0); MEAN CORPUSCULAR HGB CONC 33.2 g/dl (32.0-36.5); MEAN CORPUSCULAR VOLUME 86.3 fl (80.0-96.0); MONO # 0.4 10^3/uL (0.0-0.8); MONO % 4.2 % (0.0-5.0); NEUTROPHILS # 6.2 10^3/uL (1.5-8.5); NEUTROPHILS % 60.4 % (36.0-66.0); PLATELET COUNT, AUTOMATED 364 10^3/uL (150-450); RED BLOOD COUNT 5.17 10^6/uL (4.00-5.40); WHITE BLOOD COUNT 10.2 10^3/uL (4.0-10.0)
[2019-11-18 16:54] LABS: INR 0.99; PROTHROMBIN TIME 12.8 SECONDS (11.8-14.0)
[2019-11-18 17:21] LABS: ALBUMIN 4.2 GM/DL (3.2-5.2); ALT/SGPT 27 U/L (12-78); BILIRUBIN,DIRECT 0.2 MG/DL (0.0-0.2); BILIRUBIN,TOTAL 1.4 MG/DL (0.2-1.0); BLOOD UREA NITROGEN 18 MG/DL (7-18); CALCIUM LEVEL 9.6 MG/DL (8.8-10.2); CARBON DIOXIDE LEVEL 22 MEQ/L (21-32); CHLORIDE LEVEL 103 MEQ/L (98-107); CK-MB VALUE MASS 1.4 NG/ML (<3.6); CPK CREATINE PHOSPHOKINASE 154 U/L (26-192); CREATININE FOR GFR 0.62 MG/DL (0.55-1.30); GLOMERULAR FILTRATION RATE > 60.0 (>45); GLUCOSE, FASTING 61 MG/DL (70-100); LIPASE 82 U/L (73-393); MB/CK RELATIVE INDEX 0.91 (< OR =4); NT-PRO BNP 13 PG/ML (<125); POTASSIUM SERUM 4.3 MEQ/L (3.5-5.1); SODIUM LEVEL 137 MEQ/L (136-145); TOTAL PROTEIN 8.4 GM/DL (6.4-8.2); TROPONIN I < 0.02 NG/ML (< 0.10)
--- NOTE | 2019-11-18 18:58 | ECGEPIP ---
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
[2019-11-18 20:40] VITALS: BP 159/74
== END 2019-11-18 20:50 | disposition home or self-care (01) ==
LOC: M ED 15:57
DX: E11.649 Type 2 diabetes mellitus with hypoglycemia without coma (principal); I10 Essential (primary) hypertension; E78.5 Hyperlipidemia, unspecified; G62.9 Polyneuropathy, unspecified; R56.9 Unspecified convulsions; Z86.73 Personal history of transient ischemic attack (TIA), and cerebral infarction without residual deficits; Z79.899 Other long term (current) drug therapy; Z79.82 Long term (current) use of aspirin; Z79.4 Long term (current) use of insulin; Z79.01 Long term (current) use of anticoagulants

== ENCOUNTER → 2020-02-03 | Outpatient (REF) | payer MEDICARE ==
[2020-02-03 11:36] LABS: BASO # 0.1 10^3/uL (0.0-0.2); BASO % 0.9 % (0.0-1.0); EOS # 0.1 10^3/uL (0.0-0.5); EOS % 1.2 % (0.0-3.0); HEMATOCRIT 45.7 % (36.0-47.0); HEMOGLOBIN 14.6 g/dl (12.0-15.5); LYMPH # 2.2 10^3/uL (1.5-5.0); LYMPH % 28.7 % (24.0-44.0); MEAN CORPUSCULAR HEMOGLOBIN 28.1 pg (27.0-33.0); MEAN CORPUSCULAR HGB CONC 31.9 g/dl (32.0-36.5); MEAN CORPUSCULAR VOLUME 88.1 fl (80.0-96.0); MONO # 0.4 10^3/uL (0.0-0.8); MONO % 5.4 % (0.0-5.0); NEUTROPHILS # 4.8 10^3/uL (1.5-8.5); NEUTROPHILS % 63.4 % (36.0-66.0); PLATELET COUNT, AUTOMATED 298 10^3/uL (150-450); RED BLOOD COUNT 5.19 10^6/uL (4.00-5.40); WHITE BLOOD COUNT 7.6 10^3/uL (4.0-10.0)
[2020-02-03 11:38] LABS: ALBUMIN 3.9 GM/DL (3.2-5.2); ALT/SGPT 32 U/L (12-78); BILIRUBIN,TOTAL 0.6 MG/DL (0.2-1.0); BLOOD UREA NITROGEN 20 MG/DL (7-18); CALCIUM LEVEL 9.7 MG/DL (8.8-10.2); CARBON DIOXIDE LEVEL 27 MEQ/L (21-32); CHLORIDE LEVEL 106 MEQ/L (98-107); CREATININE FOR GFR 0.57 MG/DL (0.55-1.30); GLOMERULAR FILTRATION RATE > 60.0 (>45); GLUCOSE, FASTING 131 MG/DL (70-100); POTASSIUM SERUM 4.9 MEQ/L (3.5-5.1); SODIUM LEVEL 140 MEQ/L (136-145); TOTAL PROTEIN 7.6 GM/DL (6.4-8.2)
== END ==
LOC: M SFHCLERA 09:08
PROVIDERS: ATTEND Family Medicine
DX: K62.5 Hemorrhage of anus and rectum (principal)

== ENCOUNTER 2020-02-16 09:35 | Emergency (ER) | payer MEDICARE ==
[~2020-02-16] VITALS: Ht 147.3 cm; Wt 67.9 kg
[2020-02-16 09:36] VITALS: BP 139/60
[2020-02-16] MEDS ORDERED: ACETAMINOPHEN 325 MG TAB PO ONE (10:15)
[2020-02-16] MEDS ORDERED: DERMABOND TOPICAL SKIN ADHESIVE TOP ONE (10:15)
--- NOTE | 2020-02-16 10:52 | REP ---
CT BRAIN WITHOUT CONTRAST: CT brain performed without IV contrast. Coronal reconstruction images are performed. COMPARISON: 12/16/2017 Once again, there is mild to moderate atrophy. There is no midline shift or mass effect. There are chronic periventricular small vessel ischemic changes which appear similar to the prior study. There is no acute intracranial hemorrhage or extra-axial fluid collection. Vascular calcifications are seen in the carotid siphons. The visualized paranasal sinuses and mastoid air cells are clear. IMPRESSION: Chronic changes as discussed above. No acute intracranial hemorrhage, midline shift or mass effect. Electronically Signed by Jeremie Avery MD 02/16/2020 04:40 P
== END 2020-02-16 11:09 | disposition home or self-care (01) ==
LOC: M ED 09:35
DX: S01.312A Laceration without foreign body of left ear, initial encounter (principal); S06.0X9A Concussion with loss of consciousness of unspecified duration, initial encounter; W01.190A Fall on same level from slipping, tripping and stumbling with subsequent striking against furniture, initial encounter; Y92.098 Other place in other non-institutional residence as the place of occurrence of the external cause; I10 Essential (primary) hypertension; G47.33 Obstructive sleep apnea (adult) (pediatric); Z86.73 Personal history of transient ischemic attack (TIA), and cerebral infarction without residual deficits; E11.9 Type 2 diabetes mellitus without complications; Z79.899 Other long term (current) drug therapy; Z79.82 Long term (current) use of aspirin; Z79.02 Long term (current) use of antithrombotics/antiplatelets; Z79.4 Long term (current) use of insulin

== ENCOUNTER → 2021-02-03 | Outpatient (CLI) | payer MEDICARE ==
[2021-02-03 10:23] LABS: ALBUMIN 3.9 GM/DL (3.2-5.2); ALT/SGPT 35 U/L (12-78); BILIRUBIN,TOTAL 1.8 MG/DL (0.2-1.0); BLOOD UREA NITROGEN 19 MG/DL (7-18); CALCIUM LEVEL 9.5 MG/DL (8.8-10.2); CARBON DIOXIDE LEVEL 28 MEQ/L (21-32); CHLORIDE LEVEL 99 MEQ/L (98-107); CHOLESTEROL LEVEL 179 MG/DL (<200); CHOLESTEROL RISK RATIO 2.934 (<5); CREATININE FOR GFR 0.67 MG/DL (0.55-1.30); GLOMERULAR FILTRATION RATE > 60.0 (>45); GLUCOSE, FASTING 219 MG/DL (70-100); HDL CHOLESTEROL 61 MG/DL (>40); LDL CHOLESTEROL 91 MG/DL (<100); NON-HDL-C 118 MG/DL; POTASSIUM SERUM 4.8 MEQ/L (3.5-5.1); SODIUM LEVEL 135 MEQ/L (136-145); TOTAL PROTEIN 8.1 GM/DL (6.4-8.2); TRIGLYCERIDES LEVEL 135 MG/DL (<150)
== END ==
LOC: M LAB 09:33
PROVIDERS: ATTEND Nurse Practitioner Family
DX: E78.5 Hyperlipidemia, unspecified (principal)

== ENCOUNTER → 2021-06-21 | Outpatient (REF) | payer MEDICARE ==
[2021-06-21 18:38] LABS: CREATININE, URINE 46.5 MG/DL; MALB URINE SIEMENS 81.9 MG/L; MAU/CREAT RATIO 176.1 MCG/MG (0.0-30.0)
== END ==
LOC: M LAB REF 17:12
PROVIDERS: ATTEND Nurse Practitioner Family
DX: E11.65 Type 2 diabetes mellitus with hyperglycemia (principal)